=== PATIENT | male | born 1995 | race American Indian/Alaskan Native ===

== ENCOUNTER 2019-07-27 11:49 | Emergency (ER) | payer MEDICAID ==
[2019-07-27 12:15] VITALS: BP 133/64
--- NOTE | 2019-07-27 13:04 | Emergency Department Report ---
Blank Doc - Documentation Documentation: 23-year-old male that presents with abdominal pain and n/v. This initial assessment/diagnostic orders/clinical plan/treatment(s) is/are subject to change based on patient's health status, clinical progression and re- assessment by fellow clinical providers in the ED. Further treatment and workup at subsequent clinical providers discretion. Patient/guardians urged not to elope from the ED as their condition may be serious if not clinically assessed and managed. Initial orders include: 1- Patient sent to [facility] for further evaluation and treatment 2- labs 3- UA
[2019-07-27 14:24] LABS: Basophils % (Auto) 0.2 % (0.0-1.8); Hematocrit 47.7 % (35.5-45.6); Hemoglobin 15.7 gm/dl (11.8-15.2); Lymphocytes # (Auto) 0.3 K/mm3 (1.2-5.4); Lymphocytes % (Auto) 3.3 % (13.4-35.0); Mean Corpuscular HGB Conc 33 % (32-34); Mean Corpuscular Volume 80 fl (84-94); Monocytes # (Auto) 0.7 K/mm3 (0.0-0.8); Monocytes % (Auto) 6.6 % (0.0-7.3); Platelet Count 206 K/mm3 (140-440); Red Blood Count 5.94 M/mm3 (3.65-5.03); Red Cell Distribution Width 16.4 % (13.2-15.2)
[2019-07-27] MEDS ORDERED: ONDANSETRON 4 MG/2 ML INJ IV ONE (14:43)
[2019-07-27] MEDS ORDERED: SODIUM CHLORIDE 0.9% 1000 ML 1,000 ML IV ONE ×2 (14:43→15:31)
[2019-07-27 14:44] LABS: Alanine Aminotransferase 24 units/L (7-56); Albumin 4.4 g/dL (3.9-5); BUN/Creatinine Ratio 14; Blood Urea Nitrogen 15 mg/dL (9-20); Calcium 9.3 mg/dL (8.4-10.2); Hemolysis Index 37
--- NOTE | 2019-07-27 14:49 | Emergency Department Report ---
ED Abdominal Pain HPI - General Chief Complaint: Abdominal Pain Stated Complaint: ABD PAIN Time Seen by Provider: 07/27/19 13:03 Source: patient Mode of arrival: Wheelchair Limitations: No Limitations - History of Present Illness Initial Comments: 23-year-old -[place] male presents to the emergency room for diffuse abdominal pain nausea and vomiting that started about 2 AM. Patient states he did eat a chicken and a bologna sandwich. Patient denies any alcohol use. Patient reports he has a past medical history of hypertension but takes nothing for it. Patient does not have a primary care provider. Patient reported he vomited greater than 5 times. He has no known drug allergies. Patient is homeless. -: This morning Time: 02:00 Location: diffuse Severity scale (0 -10): 8 Consistency: constant Worsens With: vomiting Associated Symptoms: nausea, vomiting, other (Back pain) - Related Data Previous Rx's Medication Instructions Recorded Last Taken Type Ondansetron [Zofran Odt] 4 mg PO Q8HR PRN #8 tab.rapdis 07/27/19 Unknown Rx Allergies Allergy/AdvReac Type Severity Reaction Status Date / Time No Known Allergies Allergy Unverified 07/27/19 11:59 ED Review of Systems ROS: Stated complaint: ABD PAIN Other details as noted in HPI Comment: All other systems reviewed and negative ED Past Medical Hx - Past Medical History Previous Medical History?: Yes Hx Hypertension: Yes - Social History Smoking Status: Current Every Day Smoker Substance Use Type: Alcohol - Medications Home Medications: Home Medications Medication Instructions Recorded Confirmed Last Taken Type Ondansetron [Zofran Odt] 4 mg PO Q8HR PRN #8 tab.rapdis 07/27/19 Unknown Rx ED Physical Exam - General Limitations: No Limitations General appearance: alert, other (Appears to be uncomfortable) - Head Head exam: Present: atraumatic, normocephalic - Eye Eye exam: Present: normal appearance - ENT ENT exam: Present: mucous membranes moist - Cardiovascular Cardiovascular Exam: Present: tachycardia - GI/Abdominal GI/Abdominal exam: Present: soft, tenderness. Absent: distended, guarding, rebound - Rectal Rectal exam: Present: deferred - Back Exam Back exam: Present: normal inspection, full ROM. Absent: tenderness - Neurological Exam Neurological exam: Present: alert, oriented X3 - Psychiatric Psychiatric exam: Present: normal affect, normal mood - Skin Skin exam: Present: warm, dry, intact, normal color. Absent: rash ED Course Vital Signs 07/27/19 07/27/19 12:06 15:01 Temperature 98.3 F Pulse Rate 95 H Respiratory 16 17 Rate Blood Pressure 133/64 O2 Sat by Pulse 97 Oximetry ED Medical Decision Making - Lab Data Result diagrams: 07/27/19 13:57 07/27/19 13:57 - Medical Decision Making 23-year-old -[place] male presents to the emergency room for diffuse abdominal pain nausea and vomiting that started about 2 AM. Patient states he did eat a chicken and a bologna sandwich. Patient denies any alcohol use. Patient reports he has a past medical history of hypertension but takes nothing for it. Patient does not have a primary care provider. Patient reported he vomited greater than 5 times. He has no known drug allergies. Patient is homeless. Labs have been ordered CBC, CMP, lipase urinalysis. IV insertion, normal saline 1 L, Zofran 4 mg IV. Critical care attestation.: If time is entered above; I have spent that time in minutes in the direct care of this critically ill patient, excluding procedure time. ED Disposition Clinical Impression: Dehydration, Diffuse abdominal pain Nausea and vomiting Qualifiers: Vomiting type: unspecified Vomiting Intractability: intractable Qualified Code(s): R11.2 - Nausea with vomiting, unspecified Disposition: DC-01 TO HOME OR SELFCARE Is pt being admited?: No Does the pt Need Aspirin: No Condition: Stable Instructions: Dehydration (ED), Acute Nausea and Vomiting (ED) Additional Instructions: Please take Zofran as needed for nausea and vomiting. Increase your fluid intake advance her diet as tolerated. Follow-up with [facility] if your symptoms persist or gets worse. Prescriptions: Ondansetron [Zofran Odt] 4 mg PO Q8HR PRN #8 tab.rapdis PRN Reason: Nausea And Vomiting Forms: Work/School Release Form(ED)
[2019-07-27 15:03] LABS: Bilirubin,Urine NEG (Negative); Blood,Urine NEG (Negative); Color,Urine Yellow (Yellow); Mucus,Urine 3+ /HPF; Protein,Urine <15 mg/dL mg/dL (Negative); RBC,Urine < 1.0 /HPF (0.0-6.0)
== END 2019-07-27 16:47 | disposition home or self-care (01) ==
LOC: ED 11:49
DX: E86.0 Dehydration (principal); R11.2 Nausea with vomiting, unspecified; R10.84 Generalized abdominal pain; F17.200 Nicotine dependence, unspecified, uncomplicated; I10 Essential (primary) hypertension; Z79.899 Other long term (current) drug therapy; Z59.0 Homelessness
CPT/HCPCS: 36415; 80053; 81001; 83690; 85025; 96361; 96374; 99284; J2405; J7030

== ENCOUNTER 2019-08-18 20:03 | Emergency (ER) | payer MEDICAID ==
--- NOTE | 2019-08-18 20:20 | Emergency Department Report ---
Blank Doc - Documentation Documentation: 24-year-old male that presents with flank pains. This initial assessment/diagnostic orders/clinical plan/treatment(s) is/are subject to change based on patient's health status, clinical progression and re- assessment by fellow clinical providers in the ED. Further treatment and workup at subsequent clinical providers discretion. Patient/guardians urged not to elope from the ED as their condition may be serious if not clinically assessed and managed. Initial orders include: 1- Patient sent to [facility] for further evaluation and treatment 2- UA
[2019-08-18] MEDS ORDERED: CYCLOBENZAPRINE 10 MG TAB PO ONE (23:34)
[2019-08-18] MEDS ORDERED: IBUPROFEN 600 MG TAB PO ONE (23:34)
--- NOTE | 2019-08-18 23:46 | Emergency Department Report ---
<ADILIA BOWEN - Last Filed: 08/19/19 03:13> ED Back Pain/Injury HPI - General Chief Complaint: Abdominal Pain Stated Complaint: KIDNEY PAIN Time Seen by Provider: 08/18/19 20:19 Source: patient Limitations: No Limitations - History of Present Illness Initial Comments: Patient is a 24-year-old male presents emergency room with complaints of lower back pain that began a couple days ago. He states that he has had this pain before approximately a month ago. He has associated urinary frequency and states that his urine has appeared darker. He denies any nausea, vomiting, diarrhea, fever, history of cancer, steroid use. He denies any fall or injury. He denies any numbness, weakness, bowel or bladder incontinence. He has a past medical history of hypertension. No allergies to medications. - Related Data Previous Rx's Medication Instructions Recorded Last Taken Type Ondansetron [Zofran Odt] 4 mg PO Q8HR PRN #8 tab.rapdis 07/27/19 Unknown Rx Cyclobenzaprine [Flexeril] 10 mg PO Q8H PRN #15 tablet 08/19/19 Unknown Rx Naproxen 500 mg PO Q12H PRN #20 tablet 08/19/19 Unknown Rx Allergies Allergy/AdvReac Type Severity Reaction Status Date / Time No Known Allergies Allergy Unverified 07/27/19 11:59 ED Review of Systems Comment: All other systems reviewed and negative ED Past Medical Hx - Past Medical History Previous Medical History?: Yes Hx Hypertension: Yes - Surgical History Past Surgical History?: No - Social History Smoking Status: Current Every Day Smoker Substance Use Type: None - Medications Home Medications: Home Medications Medication Instructions Recorded Confirmed Last Taken Type Ondansetron [Zofran Odt] 4 mg PO Q8HR PRN #8 tab.rapdis 07/27/19 Unknown Rx Cyclobenzaprine [Flexeril] 10 mg PO Q8H PRN #15 tablet 08/19/19 Unknown Rx Naproxen 500 mg PO Q12H PRN #20 tablet 08/19/19 Unknown Rx ED Physical Exam - General Limitations: No Limitations General appearance: alert, in no apparent distress - Head Head exam: Present: atraumatic, normocephalic - Eye Eye exam: Present: normal appearance - ENT ENT exam: Present: mucous membranes moist - Neck Neck exam: Present: normal inspection, full ROM. Absent: tenderness - Respiratory Respiratory exam: Present: normal lung sounds bilaterally. Absent: respiratory distress, wheezes, rales, rhonchi, stridor, chest wall tenderness, accessory muscle use, decreased breath sounds, prolonged expiratory - Cardiovascular Cardiovascular Exam: Present: regular rate, normal rhythm, normal heart sounds. Absent: systolic murmur, diastolic murmur, rubs, gallop - Back Exam Back exam: Present: normal inspection, full ROM, paraspinal tenderness (bilateral lumbar paraspinal muscular ttp, no midline C-spine, T-spine, or L- spine ttp, no step offs, no deformities). Absent: CVA tenderness (R), CVA tenderness (L), vertebral tenderness - Neurological Exam Neurological exam: Present: alert, oriented X3, CN II-XII intact, normal gait. Absent: motor sensory deficit - Psychiatric Psychiatric exam: Present: normal affect, normal mood - Skin Skin exam: Present: warm, dry, intact ED Course - Consultations Consultation #1: 08/19/19 03:13 s/o to Rey Link PA-C pending CT abd/pelvis without contrast ED Medical Decision Making - Lab Data Result diagrams: 08/18/19 23:41 08/18/19 23:41 ED Disposition Clinical Impression: Gross hematuria, Spasm of muscle of lower back Acute low back pain without sciatica Qualifiers: Back pain laterality: unspecified Qualified Code(s): M54.5 - Low back pain Disposition: DC-01 TO HOME OR SELFCARE Condition: Stable Instructions: Muscle Spasm (ED), Acute Hematuria (ED), Acute Low Back Pain (ED) Additional Instructions: Take medications with food, drink plenty of fluids and follow-up with your primary care physician in 7 to 10 days for reevaluation. Return to the ED immediately if symptoms get worse. Prescriptions: Cyclobenzaprine [Flexeril] 10 mg PO Q8H PRN #15 tablet PRN Reason: Muscle Spasm Naproxen 500 mg PO Q12H PRN #20 tablet PRN Reason: Pain , Severe (7-10) Referrals: [facility] [Outside] - 7-10 days Print Language: KYRGYZ <REY LINK - Last Filed: 08/19/19 05:23> ED Review of Systems ROS: Stated complaint: KIDNEY PAIN Other details as noted in HPI ED Course Vital Signs 08/18/19 20:09 Temperature 98.6 F Pulse Rate 88 Respiratory 18 Rate Blood Pressure 128/74 O2 Sat by Pulse 95 Oximetry ED Medical Decision Making - Lab Data Result diagrams: 08/18/19 23:41 08/18/19 23:41 - Radiology Data Radiology results: report reviewed, image reviewed Findings [facility] [address] [place] [address] Cat Scan Report Signed Patient: JEFFY RAI MR#: [id number] 9 : 1995 Acct:[id number] Age/Sex: 24 / M ADM Date: 08/18/19 Loc: ED Attending Dr: Ordering Physician: JOJO GARRETT Date of Service: 08/19/19 Procedure(s): CT abdomen pelvis wo con Accession Number(s): [id number] cc: JOJO GARRETT CT of the abdomen and pelvis without contrast INDICATION: Right flank pain COMPARISON: None FINDINGS: Lung bases are clear. The liver, spleen, pancreas, adrenal glands and kidneys all appear normal. There are no calculi seen in either kidney. No hydronephrosis or perinephric edema. No gross renal masses. No definite gallbladder or biliary tree abnormality. No fluid or adenopathy in the upper abdomen. CT of the pelvis shows no ureteral stone. No stone fragments seen in the bladder. No diverticular disease or colitis. Appendix is seen and is normal. No pelvic fluid or adenopathy. No skeletal abnormality. IMPRESSION: Negative study. No kidney stone or appendicitis seen. Automated exposure control was utilized to diminish radiation dose. Signer Name: Mikey Crabtree MD Signed: 08/19/2019 5:06 AM Workstation Name: [id number] Transcribed By: DARIUS Dictated By: Mikey Crabtree MD Electronically Authenticated By: Mikey Crabtree MD Signed Date/Time: 08/19/19 050 DD/ 050 TD/TT: - Medical Decision Making This is a 24-year-old male who presented to the ED with a low back pain. In the ED, patient is alert and oriented x3 and is not in distress. Labs were drawn and lab test results revealed CK of 1295 and significant hematuria. The elevated total CK level of 1295 is attributable from the fact the patient is homeless and is on his feet walking all the time with no place to rest with inadequate hydration. The rest of the lab test results were unremarkable and nonactionable and no sign of rhabdomyolysis. I assumed the care of the patient from Adilia Bowen PA-C at shift change at 0300 hrs. At the time of shift change, the patient was awaiting abdomen pelvis CT scan without contrast report to rule out kidney stones based on the fact that the patient had significant blood in the urine. Patient was treated in the ED with 2 L of normal saline IV bolus and also treated for pain. On reevaluation, patient's pain is well controlled with medications. Abdomen pelvis CT scan with without contrast showed no acute abnormalities including kidney stones although we cannot rule out the fact the patient may have had kidney stone prior to arrival in the ED which passed but was still having residual blood in the ureter. Patient was discharged home on pain medications and muscle relaxants and was advised to follow-up with his primary care physician in 7 to 10 days for reevaluation. Patient was was advised to drink plenty of fluids. - Differential Diagnosis kidney stones; UTI; Dehydration; Muscle spasm Critical care attestation.: If time is entered above; I have spent that time in minutes in the direct care of this critically ill patient, excluding procedure time. ED Disposition Is pt being admited?: No Does the pt Need Aspirin: No Time of Disposition: 05:21
[2019-08-18 23:51] LABS: Basophils % (Auto) 0.4 % (0.0-1.8); Eosinophils % (Auto) 0.2 % (0.0-4.3); Hematocrit 43.4 % (35.5-45.6); Hemoglobin 14.4 gm/dl (11.8-15.2); Lymphocytes # (Auto) 1.9 K/mm3 (1.2-5.4); Lymphocytes % (Auto) 18.3 % (13.4-35.0); Mean Corpuscular HGB Conc 33 % (32-34); Mean Corpuscular Volume 79 fl (84-94); Monocytes # (Auto) 0.8 K/mm3 (0.0-0.8); Monocytes % (Auto) 7.9 % (0.0-7.3); Platelet Count 224 K/mm3 (140-440); Red Blood Count 5.49 M/mm3 (3.65-5.03); Red Cell Distribution Width 15.7 % (13.2-15.2)
[2019-08-19 00:05] LABS: BUN/Creatinine Ratio 16; Blood Urea Nitrogen 16 mg/dL (9-20); Calcium 10.1 mg/dL (8.4-10.2); Hemolysis Index 9
[2019-08-19] MEDS ORDERED: SODIUM CHLORIDE 0.9% 1000 ML 1,000 ML IV ONE ×2 (00:13→03:12)
[2019-08-19 01:20] LABS: Bacteria,Urine 1+ /HPF (Negative); Bilirubin,Urine NEG (Negative); Blood,Urine LG (Negative); Color,Urine Yellow (Yellow); Mucus,Urine 2+ /HPF
[2019-08-19 01:59] VITALS: BP 128/74
--- NOTE | 2019-08-19 05:10 | Cat Scan Report ---
CT of the abdomen and pelvis without contrast INDICATION: Right flank pain COMPARISON: None FINDINGS: Lung bases are clear. The liver, spleen, pancreas, adrenal glands and kidneys all appear no rmal. There are no calculi seen in either kidney. No hydronephrosis or perinephric edema. No gross re nal masses. No definite gallbladder or biliary tree abnormality. No fluid or adenopathy in the upper abdomen. CT of the pelvis shows no ureteral stone. No stone fragments seen in the bladder. No diverticular dis ease or colitis. Appendix is seen and is normal. No pelvic fluid or adenopathy. No skeletal abnormali ty. IMPRESSION: Negative study. No kidney stone or appendicitis seen. Automated exposure control was utilized to diminish radiation dose. Signer Name: Mikey Crabtree MD Signed: 08/19/2019 5:06 AM Workstation Name: [id number]
== END 2019-08-19 05:53 | disposition home or self-care (01) ==
LOC: ED 20:03
DX: R31.0 Gross hematuria (principal); M54.5 Low back pain; I10 Essential (primary) hypertension; F17.200 Nicotine dependence, unspecified, uncomplicated; Z79.899 Other long term (current) drug therapy
CPT/HCPCS: 36415; 74176; 80048; 81001; 82550; 85025; 99284; J7030; 96360; 96361